=== PATIENT | female | born 1935 | race Caucasian/White ===

== ENCOUNTER 2016-07-19 16:06 | Emergency (ER) | payer OTHER, MEDICAID ==
[~2016-07-19] VITALS: Wt 72.0 kg
[~2016-07-19 16:06] MED LIST: ACET500T84 PO; ASPI-664 PO; DICL75TA2 PO; DILT180C75 PO; HYDR12.58 PO; VALS320T14 PO
[2016-07-19] MEDS ORDERED: IBUPROFEN 200 MG TAB PO ONE (16:30)
--- NOTE | 2016-07-19 16:59 | ERD ---
ER Documentation Chief Complaint Date/Time DATE: 07/19/16 TIME: 16:47 Chief Complaint left hand 3rd and 4th finger injury from car door slammed on it HPI Patient is a 80-year-old female with past medical history of hypertension and arthritis who presents to the emergency department with left hand pain status post crush injury. Patient states approximately 20 minutes ago she got her left hand stuck in the car door. She reports immediate pain and swelling to her fingers. She states her current pain level is a 8 out of 10. She does have a ring on her third digit which is causing significant swelling to her third digit. She is right-hand dominant. Patient denies any injuries to this extremity. Patient denies any fever, chills, chest pain, shortness of breath, nausea, vomiting, diaphoresis, or loss of consciousness. ROS All systems reviewed and are negative except as per history of present illness. Medications Home Meds Active Scripts Ibuprofen* (Motrin*) 400 Mg Tab, 400 MG PO Q6, #20 TAB Prov:EDUARD HERNANDEZ PA-C 07/19/16 Aspirin* (Aspirin* EC) 81 Mg Tablet., 81 MG PO DAILY, #30 TAB 1 Refill Prov:JONATHAN LEONARD MD 12/24/14 Diltiazem Hcl* (Cardizem CD*) 180 Mg Capsr, 180 MG PO DAILY, #30 1 Refill Prov:JONATHAN LEONARD MD 12/24/14 Reported Medications Acetaminophen (Q-Pap Extra Strength) 500 Mg Tablet, 500 MG PO BID Y for PAIN AND OR ELEVATED TEMP, #50 09/29/15 Valsartan (Valsartan) 320 Mg Tablet, 320 MG PO DAILY, #90 09/29/15 Hydrochlorothiazide* (Hydrochlorothiazide*) 12.5 Mg Tablet, 12.5 MG PO DAILY, # 30 09/29/15 Diclofenac Sodium* (Diclofenac Sodium*) 75 Mg Tablet.dr, 75 MG PO BID 01/31/12 Allergies Allergies: Coded Allergies: No Known Allergy (Verified , 01/31/12) PMhx/Soc History of Surgery: Yes Anesthesia Reaction: No Hx Neurological Disorder: No Hx Respiratory Disorders: No Hx Cardiac Disorders: Yes (htn) Hx Psychiatric Problems: No Hx Miscellaneous Medical Probl: No Hx Alcohol Use: No Hx Substance Use: No Hx Tobacco Use: No FmHx Family History: diabetes Physical Exam Vitals Vital Signs Date Time Temp Pulse Resp B/P Pulse Ox O2 Delivery O2 Flow Rate FiO2 07/19/16 16:07 98.7 102 22 179/88 99 Physical Exam GENERAL: Well-developed, well-nourished female. Appears in no acute distress. HEAD: Normocephalic, atraumatic. EYES: Pupils are equally reactive bilaterally. EOMs grossly intact. No conjunctival erythema. ENT: Moist mucous membranes. No uvula deviation. No kissing tonsils. NECK: Supple. No lymphadenopathy or thyromegaly. No meningismus. LUNG: Clear to auscultation bilaterally. No rhonchi, wheezing, rales or coarse breath sounds. HEART: Regular rate and rhythm. No murmurs, rubs or gallops. BACK: No midline tenderness. EXTREMITIES: Equal pulses bilaterally. No peripheral clubbing, cyanosis or edema. No unilateral leg swelling. NEUROLOGIC: Alert and oriented. Moving all four extremities without any difficulty. Normal speech. Steady gait. SKIN: Normal color. Warm and dry. No rashes or lesions. LEFT HAND: No obvious deformity. Ring on 3rd digit. + Significant swelling of 3rd and 4th digits. Superficial laceration to third and fourth digits on the palmar aspect above PIP joint. No tendon or muscle belly exposed. Decreased ROM of digits secondary to pain and secondary. Normal range of motion of wrist, elbow. Patient able to pronate and supinate without any difficulty. Tender to palpation along 3rd and 4th digits. Nontender to palpation of hand, wrist, forearm, elbow. Sensation intact to light touch. Neurovascularly intact. (Able to give thumbs up, make an ok sign, cross digits 2 and 3, thumb to pinky opposition. 2+ RP.) No snuffbox tenderness. Results 24 hrs Current Medications Medications (Trade) Dose Ordered Sig/Samra Route PRN Reason Start Time Stop Time Status Last Admin Dose Admin Ibuprofen (Motrin) 400 mg ONCE ONCE PO 07/19/16 16:30 07/19/16 16:32 DC 07/19/16 17:22 Procedures/MDM ED COURSE: The patient was stable throughout ED course. I kept the patient and/or family informed of laboratory and diagnostic imaging results throughout the ED course. DIAGNOSTIC IMAGING: Read by radiologist. DIAGNOSTIC IMAGING REPORT Patient: ALANNA DAVIES : 1935 Age: 80 Sex: F [id number] DOS: 07/19/16 1630 Ordering MD: EDUARD HERNANDEZ PA-C Location: [facility] Room/Bed: PROCEDURE: XR Left Hand. CLINICAL INDICATION: Trauma due to crushing the hand in a door. Left hand pain. TECHNIQUE: Three views. Frontal lateral and oblique images of the left hand were obtained. COMPARISON: No prior studies are available for comparison. FINDINGS: There is no fracture or dislocation. The soft tissues are normal. Articular surfaces are intact. There is no lytic or blastic lesion. There is no radiopaque foreign body. IMPRESSION: 1. Unremarkable images of the left hand. RPTAT: QQ .Brandon Love MD, Date Time Electronically viewed and signed by .Brandon Love MD, on 07/19/2016 17:25 .R/ CC: EDUARD HERNANDEZ PA-C PROCEDURES: Ring removal: Patient's ring was removed from her third digit of left hand without any difficulty using lubrication and light tugging/ pressure. Patient was neurovascularly intact pre-and post-removal. MEDICATIONS GIVEN: Ibuprofen Patient tolerated medication well with no adverse reactions. Patient reported improvement in pain. MEDICAL DECISION MAKING: This is a 9-year-old female who presents with left hand pain status post injury with car door. Patient had a ring on her third left digit which was removed without any difficulty using lubrication. She was neurovascularly intact pre and post removal. Vital signs were reviewed. Patient was afebrile. XR showed Unremarkable images of the left hand. Given these findings, the patients presentation is most consistent with finger and hand contusion. I have a much lower clinical concern for dislocation, carpal fracture, scaphoid fracture, metacarpal fracture, phalanx fracture, Boxers fracture, mallet finger, gout, osteoarthritis, subungual hematoma, finger avulsion injury, fingertip laceration , osteomyelitis or compartment syndrome. PRESCRIPTIONS: Ibuprofen Apply Neosporin to affected superficial abrasions. DISCHARGE: At this time, patient is stable for discharge and outpatient management. RICE therapy and ROM exercises were advised to avoid stiffness. I have instructed the patient to follow-up with his/her primary care physician in 1-2 days. I have discussed with the patient the possibility of needing to see an solar energy sales specialist for further workup and imaging if the pain persists. I have instructed the patient to promptly return to the ER for any new or worsening symptoms including increased pain, swelling, redness, warmth or fever. The patient and/or family expressed understanding of and agreement with this plan. All questions were answered. Home care instructions were provided. Patients blood pressure was elevated (>120/80) but appears stable without evidence of hypertensive emergency, hypertensive urgency or end-organ failure. I had discussion with the patient about the risks of hypertension. I have advised the patient to follow up with his/her primary care physician for outpatient monitoring and treatment for hypertension in 2-3 days. I have instructed the patient to return to the ER for any new or worsening symptoms including chest pain, shortness of breath, headache, blurred vision, confusion, nausea, vomiting or LOC. Departure Diagnosis: Primary Impression: Finger injury Encounter type: initial encounter Laterality: left Qualified Code: S69.92XA - Finger injury, left, initial encounter Condition: Stable Referrals: ROSA ISELA JAIME MD (PCP) Additional Instructions: Llame al doctor MARIEL y franki stanley HI PARA DENTRO DE 1-2 WALTON.Dgale a la secretaria que nosotros le instruimos hacer esta hi.Avise o llame si johns condicin se empeora antes de la hi. Regresa aqui si peor o no mejor. EDUARD HERNANDEZ PA-C Jul 19, 2016 16:59
--- NOTE | 2016-07-19 17:25 | RADRPT ---
PROCEDURE: XR Left Hand. CLINICAL INDICATION: Trauma due to crushing the hand in a door. Left hand pain. TECHNIQUE: Three views. Frontal lateral and oblique images of the left hand were obtained. COMPARISON: No prior studies are available for comparison. FINDINGS: There is no fracture or dislocation. The soft tissues are normal. Articular surfaces are intact. There is no lytic or blastic lesion. There is no radiopaque foreign body. IMPRESSION: 1. Unremarkable images of the left hand. RPTAT: QQ .Brandon Love MD, MD Date Time Electronically viewed and signed by .Brandon Love MD, on 07/19/2016 17:25 .R/
[2016-07-19] MEDS ORDERED: IBUP400T22 PO (18:06)
== END 2016-07-19 18:23 | disposition home or self-care (01) ==
LOC: FTE 16:06
DX: S69.92XA Unspecified injury of left wrist, hand and finger(s), initial encounter (principal); I10 Essential (primary) hypertension; W23.1XXA Caught, crushed, jammed, or pinched between stationary objects, initial encounter; Y92.9 Unspecified place or not applicable; Z79.82 Long term (current) use of aspirin

== ENCOUNTER 2017-04-02 23:15 | Emergency (ER) | payer OTHER, MEDICAID ==
[~2017-04-02] VITALS: Ht 147.3 cm; Wt 79.5 kg
[~2017-04-02 23:15] MED LIST changes: +IBUP400T22 PO
[2017-04-02 23:28] VITALS: Ht 147.3 cm; Wt 79.5 kg
[2017-04-03] MEDS ORDERED: SODIUM CHLORIDE 0.9% 1L BAG IV* STA (00:07)
[2017-04-03] MEDS ORDERED: CEFTRIAXONE 1 GM/50 ML (PMX) 50 ML IVPB STA (00:07)
[2017-04-03 00:37] LABS: ABNORMAL IP MESSAGE 1; BASOPHILS % 0.2 % (0.0-2.0); HEMOGLOBIN 11.5 g/dl (12.0-16.0); LYMPHOCYTES # 0.5 10^3/ul (0.8-2.9); LYMPHOCYTES % 4.3 % (15.0-51.0); MEAN CORPUSCULAR HEMOGLOBIN 29.9 pg (29.0-33.0); MEAN CORPUSCULAR HGB CONC 34.8 g/dl (32.0-37.0); MEAN CORPUSCULAR VOLUME 85.7 fl (82.0-101.0); MEAN PLATELET VOLUME 9.6 fl (7.4-10.4); MONOCYTE # 1.1 10^3/ul (0.3-0.9); MONOCYTES % 9.3 % (0.0-11.0); NEUTROPHIL # 10.5 10^3/ul (1.6-7.5); NEUTROPHILS % 85.5 % (39.0-77.0); PLATELET COUNT 153 10^3/UL (140-415); RED BLOOD COUNT 3.85 10^6/ul (4.20-5.40); RED CELL DISTRIBUTION WIDTH 12.7 % (11.5-14.5); WHITE BLOOD COUNT 12.3 10^3/ul (4.8-10.8)
[2017-04-03] MEDS ORDERED: ONDANSETRON 4 MG INJ IV STA (00:41)
[2017-04-03] MEDS ORDERED: morphine 4 MG/ML VIAL IV STA (00:41)
--- NOTE | 2017-04-03 00:41 | ERA ---
ER Documentation Chief Complaint Date/Time DATE: 04/03/17 TIME: 00:39 Chief Complaint LOWER MID-AP 03/20 X 2 DAYS, + DYSURIA WITH ACTIVE FEVER, + CHILLS HPI Patient is a 81-year-old female who presents with 2 days of fever associated with 4 days of suprapubic and left lower quadrant pain. She denies diarrhea or vomiting. She reports dysuria. She denies cough or shortness of breath. She denies headache. ROS All systems reviewed and are negative except as per history of present illness. Medications Home Meds Active Scripts Cephalexin* (Keflex*) 500 Mg Capsule, 500 MG PO QID for 10 Days, CAP Prov:JENI MARES MD 04/03/17 Ibuprofen* (Motrin*) 400 Mg Tab, 400 MG PO Q6, #20 TAB Prov:EDUARD HERNANDEZ PA-C 07/19/16 Aspirin* (Aspirin* EC) 81 Mg Tablet.dr, 81 MG PO DAILY, #30 TAB 1 Refill Prov:JONATHAN LEONARD MD 12/24/14 Diltiazem Hcl* (Cardizem CD*) 180 Mg Capsr, 180 MG PO DAILY, #30 1 Refill Prov:JONATHAN LEONARD MD 12/24/14 Reported Medications Acetaminophen (Q-Pap Extra Strength) 500 Mg Tablet, 500 MG PO BID Y for PAIN AND OR ELEVATED TEMP, #50 09/29/15 Valsartan (Valsartan) 320 Mg Tablet, 320 MG PO DAILY, #90 09/29/15 Hydrochlorothiazide* (Hydrochlorothiazide*) 12.5 Mg Tablet, 12.5 MG PO DAILY, # 30 09/29/15 Diclofenac Sodium* (Diclofenac Sodium*) 75 Mg Tablet.dr, 75 MG PO BID 01/31/12 Allergies Allergies: Coded Allergies: No Known Allergy (Verified , 01/31/12) PMhx/Soc Past medical history: Hypertension Past surgical history: Hysterectomy Social history: Denies tobacco or alcohol History of Surgery: Yes (HYSTERECTYOMY ) Anesthesia Reaction: No Hx Neurological Disorder: No Hx Respiratory Disorders: No Hx Cardiac Disorders: Yes (HTN ) Hx Psychiatric Problems: No Hx Miscellaneous Medical Probl: No Hx Alcohol Use: No Hx Substance Use: No Hx Tobacco Use: No Smoking Status: Never smoker FmHx Family History: No coronary disease, No diabetes Physical Exam Vitals Vital Signs Date Time Temp Pulse Resp B/P Pulse Ox O2 Delivery O2 Flow Rate FiO2 04/03/17 05:15 73 22 104/54 98 Room Air 04/03/17 04:20 78 19 103/55 98 Room Air 04/03/17 03:40 98.6 74 25 99/37 95 Room Air 04/03/17 00:00 102.6 142 24 106/67 96 Room Air 04/02/17 23:28 103.0 118 22 141/59 94 Physical Exam Const: Alert, no acute distress Head: Atraumatic Eyes: Normal Conjunctiva, No pallor, no icterus ENT: Normal External Ears, Nose and Mouth. Tacky mucous membranes Neck: Full range of motion. No meningismus. Resp: Clear to auscultation bilaterally, No wheezes, no rales Cardio: Tachycardia, regularrhythm, no murmurs Abd: Soft, Tenderness in the suprapubic area and left lower quadrant, no rebound, no guarding Skin: No petechiae or rashes Back: No midline or flank tenderness Ext: No cyanosis, or edema Neur: Awake and alert, Cranial nerves II through XII intact bilaterally, strength and sensation full in 4 extremities. Psych: Normal Mood and Affect Result Diagram: 04/03/17 0025 04/03/17 0025 Results 24 hrs Laboratory Tests Test 04/03/17 00:05 04/03/17 00:25 04/03/17 02:10 Urine Color YELLOW Urine Clarity CLOUDY Urine pH 5.0 Urine Specific [place] 1.012 Urine Ketones NEGATIVEmg/dL Urine Nitrite NEGATIVEmg/dL Urine Bilirubin NEGATIVEmg/dL Urine Urobilinogen NEGATIVEmg/dL Urine Leukocyte Esterase 3+Lonnie/ul Urine Microscopic RBC 12/HPF Urine Microscopic WBC > 182/HPF Urine Bacteria FEW/HPF Urine Mucus FEW/HPF Urine Hemoglobin 3+mg/dL Urine Glucose NEGATIVEmg/dL Urine Total Protein 1+mg/dl White Blood Count 12.310^3/ul Red Blood Count 3.8510^6/ul Hemoglobin 11.5g/dl Hematocrit 33.0% Mean Corpuscular Volume 85.7fl Mean Corpuscular Hemoglobin 29.9pg Mean Corpuscular Hemoglobin Concent 34.8g/dl Red Cell Distribution Width 12.7% Platelet Count 97221^3/UL Mean Platelet Volume 9.6fl Neutrophils % 85.5% Lymphocytes % 4.3% Monocytes % 9.3% Eosinophils % 0.0% Basophils % 0.2% Nucleated Red Blood Cells % 0.0/100WBC Neutrophils # 10.510^3/ul Lymphocytes # 0.510^3/ul Monocytes # 1.110^3/ul Eosinophils # 0.010^3/ul Basophils # 0.010^3/ul Nucleated Red Blood Cells # 0.010^3/ul Prothrombin Time 15.6Sec Prothrombin Time Ratio 1.2 INR International Normalized Ratio 1.23 Activated Partial Thromboplast Time 34.0Sec Sodium Level 134mmol/L Potassium Level 3.3mmol/L Chloride Level 103mmol/L Carbon Dioxide Level 25mmol/L Anion Gap 9 Blood Urea Nitrogen 17mg/dl Creatinine 0.80mg/dl Glucose Level 187mg/dl Lactic Acid Level 1.4mmol/L 0.9mmol/L Calcium Level 8.3mg/dl Total Bilirubin 0.5mg/dl Direct Bilirubin 0.00mg/dl Indirect Bilirubin 0.5mg/dl Aspartate Amino Transf (AST/SGOT) 39IU/L Alanine Aminotransferase (ALT/SGPT) 42IU/L Alkaline Phosphatase 76IU/L Troponin I < 0.012ng/ml Total Protein 6.6g/dl Albumin 3.5g/dl Globulin 3.10g/dl Albumin/Globulin Ratio 1.12 Current Medications Medications (Trade) Dose Ordered Sig/Samra Route PRN Reason Start Time Stop Time Status Last Admin Dose Admin Sodium Chloride 2470 ml 2,470 ml BOLUS OVER 2 HOURS STAT IV* 04/03/17 00:07 04/03/17 00:09 DC 04/03/17 00:30 Ceftriaxone Sodium (Rocephin) 50 ml @ 100 mls/hr ONCE STAT IVPB 04/03/17 00:07 04/03/17 00:36 DC 04/03/17 01:00 Morphine Sulfate (morphine) 3 mg ONCE STAT IV 04/03/17 00:41 04/03/17 00:43 DC 04/03/17 01:00 Ondansetron HCl 4 mg 4 mg ONCE STAT IV 04/03/17 00:41 04/03/17 00:43 DC 04/03/17 01:00 Sodium Chloride (NS) 1,000 ml @ 1,000 mls/hr Q1H ONCE IV 04/03/17 03:00 04/03/17 03:59 DC 04/03/17 03:30 Procedures/MDM MDM: Patient is a 81-year-old female who presents with fever, dysuria and lower abdominal pain. Her UA is consistent with urinary tract infection. I suspect pyelonephritis given her fever. She has mild leukocytosis but no elevation of lactic acid. There is no daniela hypotension, but the patient had transient low diastolic blood pressures. Patient was treated with IV fluids and broad- spectrum antibiotics. She initially was tachycardic, but her vital signs normalized. She stated that she felt much better. CT scan did not show any surgical abdominal pathology. Blood and urine cultures were sent. The patient will be sent home with a 10 day course of Keflex.She was advised on return precautions and the need to follow-up on urine culture results. Departure Diagnosis: Primary Impression: Pyelonephritis Condition: JENI Galvez MD Apr 03, 2017 00:41
[2017-04-03 00:43] LABS: POSITIVE DIFF @See below
[2017-04-03 00:59] LABS: INR 1.23; PROTIME 15.6 Sec (12.2-14.2); PT RATIO 1.2
[2017-04-03 01:03] LABS: ALANINE AMINOTRANSFERASE 42 IU/L (13-69); ALBUMIN 3.5 g/dl (3.3-4.9); ALBUMIN/GLOBULIN RATIO 1.12; ALKALINE PHOSPHATASE 76 IU/L (42-121); ANION GAP 9 (8-16); ASPARTATE AMINO TRANSFERASE 39 IU/L (15-46); BILIRUBIN,INDIRECT 0.5 mg/dl (0-1.1); BILIRUBIN,TOTAL 0.5 mg/dl (0.2-1.3); BLOOD UREA NITROGEN 17 mg/dl (7-20); CALCIUM 8.3 mg/dl (8.4-10.2); CARBON DIOXIDE 25 mmol/L (21-31); CHLORIDE 103 mmol/L (97-110); GLUCOSE 187 mg/dl (70-220); POTASSIUM 3.3 mmol/L (3.5-5.1); SODIUM 134 mmol/L (135-144); TOTAL PROTEIN 6.6 g/dl (6.1-8.1)
[2017-04-03 01:11] LABS: UR BACTERIA FEW /HPF (NONE SEEN); UR MUCUS FEW /HPF (NONE SEEN); UR NONSQUAMOUS EPITHELIAL CELL 1 /HPF (NONE SEEN); UR RBC 12 /HPF (0-5)
[2017-04-03 01:12] LABS: ADD UMIC YES; UR ASCORBIC ACID NEGATIVE (NEGATIVE); UR BILIRUBIN (Dip) NEGATIVE (NEGATIVE); UR BLOOD (Dip) 3+ mg/dL (NEGATIVE); UR CLARITY CLOUDY (CLEAR); UR COLOR YELLOW (YELLOW); UR GLUCOSE (Dip) NEGATIVE (NEGATIVE); UR KETONES (Dip) NEGATIVE (NEGATIVE); UR LEUKOCYTE ESTERASE (Dip) 3+ Leu/ul (NEGATIVE); UR NITRITE (Dip) NEGATIVE (NEGATIVE); UR SPECIFIC GRAVITY (Dip) 1.012 (1.003-1.030); UR TOTAL PROTEIN (Dip) 1+ mg/dl (NEGATIVE); UR UROBILINOGEN (Dip) NEGATIVE (NEGATIVE)
[2017-04-03 01:18] LABS: TROPONIN-I < 0.012 ng/ml (0.00-0.12)
--- NOTE | 2017-04-03 01:21 | RADRPT ---
PROCEDURE: XR Chest. CLINICAL INDICATION: Chest pain. TECHNIQUE: Single frontal chest x-ray. COMPARISON: 09/29/2059 FINDINGS: The cardiomediastinal silhouette is unremarkable. There is no definite CHF.. There is hypoventilati on with bibasilar atelectasis.. There is no pleural effusion. There is no pneumothorax. There are degenerative changes of the thoracic spine.. IMPRESSION: Hypoventilation with bibasilar atelectasis. RPTAT: HMVK .Wili Magana MD, Date Time Electronically viewed and signed by .Wili Magana MD, on 04/03/2017 01:21 .K/
--- NOTE | 2017-04-03 01:41 | RADRPT ---
PROCEDURE: CT Abdomen and pelvis without contrast. CLINICAL INDICATION: Abdominal pain. TECHNIQUE: CT scan of the abdomen and pelvis was performed on a multi-detector high-resolution CT scanner. Contiguous axial images were obtained from the lung bases to the ischial tuberosities wit hout intravenous contrast. Coronal and sagittal reformatted images were also obtained. Images were reviewed on the PACS workstation. Study is limited by patient motion. One or more of the following dose reduction techniques were used: - Automated exposure control. - Adjustment of the mA and/or kV according to patient size. - Use of iterative reconstruction technique. Exam CTD/vol = 15.75 mGy. Total exam DLP = 874.28 mGy-cm. COMPARISON: None. FINDINGS: Evaluation of the lung bases demonstrates minimal bibasilar atelectasis. Abdomen: The liver is normal in size. There is no focal mass or dilatation of the biliary tree. T he gallbladder is not distended. The spleen, pancreas and bilateral adrenal glands are within dinora l limits. Bilateral kidneys are normal in size with no contour deforming mass identified. There is no radiopaque renal or ureteral calculus identified. There is no hydronephrosis or hydroureter. T here is no retroperitoneal adenopathy. The abdominal aorta is of normal caliber with scattered athe rosclerotic calcifications. There is moderate retained stool within the right colon. There is no bowel obstruction or free air. A normal appendix is identified. There are scattered sigmoid diverticuli without evidence of dive rticulitis. There is no ascites. Pelvis: The bladder is unremarkable. The uterus and adnexa are within normal limits. There is no significant pelvic adenopathy or free fluid. There are calcified injection granulomas over bilateral buttocks. Evaluation of the osseous structures demonstrates no suspicious lytic or blastic lesion. There are d egenerative changes of the spine. IMPRESSION: No acute abnormality identified within the abdomen and pelvis. Study is limited by patient motion. Moderate retained stool within the right colon. Scattered sigmoid diverticuli without evidence of diverticulitis. Vascular calcifications reflective of atherosclerosis. Degenerative changes of the spine. .Adis Jeffrey MD, Date Time Electronically viewed and signed by .Adis Jeffrey MD, on 04/03/2017 01:41 .T/
[2017-04-03] MEDS ORDERED: SOD CHLORIDE 0.9% 1,000 ML IV ONE (03:00)
[2017-04-03 03:40] VITALS: TEMP 98.6
[2017-04-03 05:15] VITALS: BP 104/54; PULSE 73; RESP 22
[2017-04-03] MEDS ORDERED: CEPH-443 PO (05:21)
== END 2017-04-03 05:35 | disposition home or self-care (01) ==
LOC: E/R 23:15
DX: N12 Tubulo-interstitial nephritis, not specified as acute or chronic (principal); I10 Essential (primary) hypertension; Z79.82 Long term (current) use of aspirin
CPT/HCPCS: 36415; 71010; 74176; 80053; 81001; 83605; 84484; 85025; 85610; 85730; 87040; 87086; 93005; 96374; 96375; 99285; J0696; J2270; J2405; J7030

== ENCOUNTER 2017-06-12 15:58 | Emergency (ER) | payer OTHER, MEDICAID ==
[~2017-06-12] VITALS: Ht 149.9 cm; Wt 80.0 kg
[~2017-06-12 15:58] MED LIST changes: +CEPH-443 PO
[2017-06-12 16:00] VITALS: Ht 149.9 cm; Wt 80.0 kg
[2017-06-12 18:06] VITALS: BP 153/43; PULSE 68; RESP 18
[2017-06-12] MEDS ORDERED: ASPIRIN 325 MG TAB PO STA (18:11)
[2017-06-12] MEDS ORDERED: morphine 2 MG INJ IV STA (18:11)
[2017-06-12] MEDS ORDERED: ONDANSETRON 4 MG INJ IV STA (18:11)
[2017-06-12 18:44] LABS: BASOPHILS % 0.4 % (0.0-2.0); EOSINOPHILS # 0.2 10^3/ul (0.0-0.5); EOSINOPHILS % 3.1 % (0.0-7.0); HEMATOCRIT 39.1 % (37.0-47.0); HEMOGLOBIN 13.4 g/dl (12.0-16.0); LYMPHOCYTES # 1.9 10^3/ul (0.8-2.9); LYMPHOCYTES % 24.7 % (15.0-51.0); MEAN CORPUSCULAR HEMOGLOBIN 29.3 pg (29.0-33.0); MEAN CORPUSCULAR HGB CONC 34.3 g/dl (32.0-37.0); MEAN CORPUSCULAR VOLUME 85.6 fl (82.0-101.0); MEAN PLATELET VOLUME 10.3 fl (7.4-10.4); MONOCYTE # 0.8 10^3/ul (0.3-0.9); MONOCYTES % 10.1 % (0.0-11.0); NEUTROPHIL # 4.8 10^3/ul (1.6-7.5); NEUTROPHILS % 61.4 % (39.0-77.0); PLATELET COUNT 221 10^3/UL (140-415); RED BLOOD COUNT 4.57 10^6/ul (4.20-5.40); WHITE BLOOD COUNT 7.7 10^3/ul (4.8-10.8)
--- NOTE | 2017-06-12 18:45 | RADRPT ---
PROCEDURE: CT Brain without contrast. CLINICAL INDICATION: Headaches TECHNIQUE: A CT of the brain was performed on a [employer] CT scanner utilizing axial imaging f rom the skull base through the vertex without IV contrast. Multiplanar reformatted images were made . Images were reviewed on a PACS workstation. The CTDIvol is 45.01 mGy and the DLP is 720.23 mGycm . DICOM images are available. One of the following 3 dose reduction techniques were used during this CT examination: 1) Automated exposure control 2) Adjustment of the mA +/- kV according to patient size or 3) Use of iterative reconstruction technique COMPARISON: None available FINDINGS: There is no intracranial hemorrhage, mass effect, or midline shift. No extra-axial fluid collection is seen. The ventricles and sulci are age appropriate. Mild diffuse volume loss is present. Subtle decreased attenuation is present in the bilateral centrum semiovale and periventricular white matter compatible with mild chronic microvascular ischemic disease. The visualized scalp and calvarium are normal. The bilateral orbits are normal. The bilateral parana laurie sinuses, mastoid air cells and middle ear cavities are clear. IMPRESSION: 1. No evidence of acute intracranial hemorrhage, infarcts, or acute intracranial pathology. 2. Mild chronic microvascular ischemic disease and diffuse volume loss. RPTAT: HDC .Ashly Davis MD, Date Time Electronically viewed and signed by .Ashly Davis MD, MD on 06/12/2017 18:44 .C/
[2017-06-12 19:03] LABS: ANION GAP 14 (8-16); BLOOD UREA NITROGEN 19 mg/dl (7-20); CALCIUM 9.1 mg/dl (8.4-10.2); CARBON DIOXIDE 27 mmol/L (21-31); CHLORIDE 106 mmol/L (97-110); CREATININE 0.73 mg/dl (0.44-1.00); GLUCOSE 100 mg/dl (70-220); POTASSIUM 4.1 mmol/L (3.5-5.1); SODIUM 143 mmol/L (135-144)
[2017-06-12 19:21] LABS: TROPONIN-I < 0.012 ng/ml (0.00-0.12)
[2017-06-12] MEDS ORDERED: IBUP400T22 PO (20:03)
[2017-06-12] MEDS ORDERED: TRAM50TA2 PO (20:03)
--- NOTE | 2017-06-12 20:10 | ERD ---
ER Documentation Chief Complaint Chief Complaint chest pain and shortness of breath x 20 mins HPI This is a 81-year-old female who complains of left-sided chest pain this morning. She describes the pain is sharp located in the left chest and worse when she takes a deep breath and worse with turning or moving her left shoulder. She does not have any pushing pulling or lifting injury. Notes no sweating no dyspnea no palpitations no nausea. Pain is nonradiating no pain in the jaw or back She also complains of a dull occipital headache onset this afternoon pain is dull and mild ROS All systems reviewed and are negative except as per history of present illness. Medications Home Meds Active Scripts Tramadol HCl (Tramadol HCl) 50 Mg Tablet, 50 MG PO Q6, #20 TAB Prov:LISA LIPSCOMB DO 06/12/17 Ibuprofen* (Motrin*) 400 Mg Tab, 400 MG PO Q6, #30 TAB Prov:LISA LIPSCOMB DO 06/12/17 Reported Medications Valsartan (Valsartan) 320 Mg Tablet, 320 MG PO DAILY, #90 09/29/15 Discontinued Reported Medications Acetaminophen (Q-Pap Extra Strength) 500 Mg Tablet, 500 MG PO BID Y for PAIN AND OR ELEVATED TEMP, #50 09/29/15 Hydrochlorothiazide* (Hydrochlorothiazide*) 12.5 Mg Tablet, 12.5 MG PO DAILY, # 30 09/29/15 Diclofenac Sodium* (Diclofenac Sodium*) 75 Mg Tablet.dr, 75 MG PO BID 01/31/12 Discontinued Scripts Cephalexin* (Keflex*) 500 Mg Capsule, 500 MG PO QID for 10 Days, CAP Prov:JENI MARES MD 04/03/17 Ibuprofen* (Motrin*) 400 Mg Tab, 400 MG PO Q6, #20 TAB Prov:EDUARD HERNANDEZ PA-C 07/19/16 Aspirin* (Aspirin* EC) 81 Mg Tablet.dr, 81 MG PO DAILY, #30 TAB 1 Refill Prov:JONATHAN LEONARD MD 12/24/14 Diltiazem Hcl* (Cardizem CD*) 180 Mg Capsr, 180 MG PO DAILY, #30 1 Refill Prov:JONATHAN LEONARD MD 12/24/14 Allergies Allergies: Coded Allergies: No Known Allergy (Verified , 06/12/17) PMhx/Soc History of Surgery: Yes (HYSTERECTYOMY ) Anesthesia Reaction: No Hx Neurological Disorder: No Hx Respiratory Disorders: No Hx Cardiac Disorders: Yes (HTN ) Hx Psychiatric Problems: No Hx Miscellaneous Medical Probl: No Hx Alcohol Use: No Hx Substance Use: No Hx Tobacco Use: No Smoking Status: Never smoker FmHx Family History: No coronary disease Physical Exam Vitals Vital Signs Date Time Temp Pulse Resp B/P Pulse Ox O2 Delivery O2 Flow Rate FiO2 06/12/17 19:57 Nasal Cannula 2 06/12/17 18:06 68 18 153/43 100 Nasal Cannula 2.0 06/12/17 16:00 98.0 86 18 203/91 100 Physical Exam Const: Well-developed, well-nourished Head: Atraumatic, normocephalic Eyes: Normal Conjunctiva, PERRLA, EOMI, normal sclera, no nystagmus ENT: Normal External Ears, Nose and Mouth, moist mucus membranes. Neck: Full range of motion. No meningismus, no lymphadenopathy. Resp: Clear to auscultation bilaterally, no wheezing, rhonchi, rales Cardio: Regular rate and rhythm, no murmurs, S1 S2 present, left anterior upper chest wall is reproducible tenderness that is moderate to severe there is also left mid and upper rib cage tenderness that is reproducible. Twisting of the trunk reproduces the pain, moving the left arm and shoulder reproduces the pain Abd: Soft, non tender x 4, non distended. Normal bowel sounds, no guarding or rebound, no pulsitile abdominal masses or bruits Skin: No petechiae or rashes, no ecchymosis , no maculopapular rash Back: No midline or flank tenderness Ext: No cyanosis, or edema, FROM x 4, normal inspection, neurovascularly intact x 4 Neur: Awake and alert, STR 5/5 x 4, sensation intact x 4, no focal findings, cerebellum intact Psych: Normal Mood and Affect Result Diagram: 06/12/17180906/12/171809 Results 24 hrs Laboratory Tests Test 06/12/17 18:10 White Blood Count 7.710^3/ul Red Blood Count 4.5710^6/ul Hemoglobin 13.4g/dl Hematocrit 39.1% Mean Corpuscular Volume 85.6fl Mean Corpuscular Hemoglobin 29.3pg Mean Corpuscular Hemoglobin Concent 34.3g/dl Red Cell Distribution Width 13.0% Platelet Count 44978^3/UL Mean Platelet Volume 10.3fl Neutrophils % 61.4% Lymphocytes % 24.7% Monocytes % 10.1% Eosinophils % 3.1% Basophils % 0.4% Nucleated Red Blood Cells % 0.0/100WBC Neutrophils # 4.810^3/ul Lymphocytes # 1.910^3/ul Monocytes # 0.810^3/ul Eosinophils # 0.210^3/ul Basophils # 0.010^3/ul Nucleated Red Blood Cells # 0.010^3/ul Sodium Level 143mmol/L Potassium Level 4.1mmol/L Chloride Level 106mmol/L Carbon Dioxide Level 27mmol/L Anion Gap 14 Blood Urea Nitrogen 19mg/dl Creatinine 0.73mg/dl Glucose Level 100mg/dl Calcium Level 9.1mg/dl Troponin I < 0.012ng/ml Current Medications Medications (Trade) Dose Ordered Sig/Samra Route PRN Reason Start Time Stop Time Status Last Admin Dose Admin Aspirin (Aspirin) 325 mg ONCE STAT PO 06/12/17 18:11 06/12/17 18:13 DC 06/12/17 19:01 Morphine Sulfate (morphine) 2 mg ONCE STAT IV 06/12/17 18:11 06/12/17 18:13 DC Ondansetron HCl (Zofran Inj) 4 mg ONCE STAT IV 06/12/17 18:11 06/12/17 18:13 DC Procedures/MDM EKG: Rate/Rhythm: Normal Sinus Rhythm,NL intervals QRS, ST, QT: NORMAL TX, QRS, QT] Impression: NORMAL EKG . . PROCEDURE: CT Brain without contrast. CLINICAL INDICATION: Headaches TECHNIQUE: A CT of the brain was performed on a [email or web address] CT scanner utilizing axial imaging from the skull base through the vertex without IV contrast. Multiplanar reformatted images were made. Images were reviewed on a PACS workstation. The CTDIvol is 45.01 mGy and the DLP is 720.23 mGycm. DICOM images are available. One of the following 3 dose reduction techniques were used during this CT examination: 1) Automated exposure control 2) Adjustment of the mA +/- kV according to patient size or 3) Use of iterative reconstruction technique COMPARISON: None available FINDINGS: There is no intracranial hemorrhage, mass effect, or midline shift. No extra- axial fluid collection is seen. The ventricles and sulci are age appropriate. Mild diffuse volume loss is present. Subtle decreased attenuation is present in the bilateral centrum semiovale and periventricular white matter compatible with mild chronic microvascular ischemic disease. The visualized scalp and calvarium are normal. The bilateral orbits are normal. The bilateral paranasal sinuses, mastoid air cells and middle ear cavities are clear. IMPRESSION: 1. No evidence of acute intracranial hemorrhage, infarcts, or acute intracranial pathology. 2. Mild chronic microvascular ischemic disease and diffuse volume loss. RPTAT: HDC .Ashly Davis MD, MD Date Time Electronically viewed and signed by .Ashly Davis MD, MD on 06/12/2017 18: 44 .C/ CC: LISA LIPSCOMB DO Patient's chest pain to me is clearly musculoskeletal in nature there is reproducible tenderness to palpation of the anterior and posterior chest wall and with twisting of the trunk movement of the arm. Cardiac workup is negative. Discharged home with Motrin and tramadol. CT scan of brain is negative no evidence of any intracranial pathology Departure Diagnosis: Primary Impression: Chest wall pain Condition: Stable Patient Instructions: Chest Wall Strain LISA LIPSCOMB DO Jun 12, 2017 20:10
--- NOTE | 2017-06-13 06:19 | RADRPT ---
PROCEDURE: XR Chest. CLINICAL INDICATION: Chest pain TECHNIQUE: An AP view of the chest was obtained. COMPARISON: DR CHEST 04/03/2017; [facility] CHEST 09/29/2015; [facility] CHEST 12/23/2014 FINDINGS: There is prominence of the interstitial markings. No pleural effusion or pneumothorax is seen. Th e cardiomediastinal silhouette is mildly enlarged . Calcifications are seen within the aortic arch. The osseous structures demonstrate senescent changes. IMPRESSION: 1. Mild prominence of the interstitial markings, may reflect mild underlying interstitial edema or chronic lung changes. Lung aeration and expansion is mildly improved when compared to the prior exam ination. 2. Mild cardiomegaly and aortic atherosclerosis. RPTAT: HH .Gali Kruse MD, MD Date Time Electronically viewed and signed by .Gali Kruse MD, on 06/13/2017 06:18 .G/
== END 2017-06-12 23:37 | disposition home or self-care (01) ==
LOC: E/R 15:58
DX: R07.89 Other chest pain (principal); I10 Essential (primary) hypertension; R51 Headache; Z79.82 Long term (current) use of aspirin
CPT/HCPCS: 36415; 70450; 71010; 80048; 84484; 85025; 93005

== ENCOUNTER 2017-07-23 09:15 | Emergency (ER) | END 2017-07-23 17:36 | disposition home or self-care (01) ==

== ENCOUNTER 2017-11-04 13:11 | Emergency (ER) | END 2017-11-04 14:55 | disposition home or self-care (01) ==

== ENCOUNTER 2018-08-27 17:49 | Emergency (ER) | payer MEDICARE, MEDICAID ==
[~2018-08-27] VITALS: Ht 152.4 cm; Wt 71.8 kg
[~2018-08-27 17:49] MED LIST changes: +ACET500C5 PO; -ACET500T84 PO; -ASPI-664 PO; +D-ME473S2 PO; -DICL75TA2 PO; -DILT180C75 PO; -HYDR12.58 PO; +HYDR25TA6 PO; -IBUP400T22 PO; +IBUP800T48 PO; +SERT25TA83 PO; -VALS320T14 PO; +VALS320T15 PO
[2018-08-27 18:01] VITALS: Ht 152.4 cm; Wt 71.8 kg
[2018-08-27] MEDS ORDERED: KETOROLAC 30 MG INJ IM STA (20:43)
[2018-08-27] MEDS ORDERED: ACETAMINOPHEN 500 MG TAB PO STA (20:43)
[2018-08-27] MEDS ORDERED: NAPR-985 PO (20:47)
[2018-08-27] MEDS ORDERED: GABA300C16 PO (20:47)
[2018-08-27] MEDS ORDERED: DEXAMETHASONE 10 MG/ML 1 ML INJ IM ONE (21:00)
[2018-08-27 21:12] VITALS: BP 162/72; PULSE 89; RESP 20
--- NOTE | 2018-08-28 00:55 | ERD ---
ER Documentation Chief Complaint Chief Complaint pt bib son with c/o right arm pain x 2 wks, "feels like a shocking pain" HPI 82 year-old [female] [male] coming in today with Chief Complaint: Arm pain History of Present Illness: Patient with complaint of right arm pain that has been present for 2 weeks, unchanged. Patient reports no relief with Aleve or icy/hot patches. Patient denies any other complaints. Denies trauma to affected extremity. Review of systems: All systems were reviewed and are negative except for what is indicated in the history of present illness. Past Medical History: positive for hypertension Social History: [Patient denies tobacco, alcohol, elicit drug use] Medications: [Reviewed as documented Nursing Notes] Allergies: [NKDA] [Reviewed as documented in Nursing Notes] Social Concerns: Denies ROS All systems reviewed and are negative except as per history of present illness. Medications Home Meds Active Scripts Gabapentin* (Gabapentin*) 300 Mg Capsule, 300 MG PO BID for PAIN, #60 CAP TAKE 1 PILL AT NIGHT FOR 3 DAYS, THEN START TAKING 1 PILL IN THE MORNING AND AT NIGHT Prov:DIANE ARCE NP 08/27/18 Naproxen* (Naprosyn*) 500 Mg Tablet, 500 MG PO BID PRN for PAIN AND/OR INFLAMMATION, #30 TAB Prov:DIANE ARCE NP 08/27/18 Dextromethorphan Hb-Promethazine Hcl* (Promethazine DM* Syrup) 473 Ml Syrup, 5 ML PO Q6 PRN for COUGH for 5 Days, ML Prov:CHIKIS QUEEN MD 11/04/17 Acetaminophen* (Tylophen*) 500 Mg Capsule, 1 CAP PO Q6H PRN for PAIN AND OR ELEVATED TEMP, #15 CAP Prov:CHIKIS QUEEN MD 11/04/17 Ibuprofen* (Motrin*) 800 Mg Tab, 800 MG PO Q6H PRN for PAIN AND OR ELEVATED TEMP, #20 TAB Prov:KAREEN SOTO MD 07/23/17 Cephalexin* (Keflex*) 500 Mg Capsule, 500 MG PO QID for 10 Days, CAP Prov:KAREEN SOTO MD 07/23/17 Ibuprofen* (Motrin*) 800 Mg Tab, 800 MG PO Q6H PRN for PAIN AND OR ELEVATED TEMP, #20 TAB Prov:KAREEN SOTO MD 07/23/17 Cephalexin* (Keflex*) 500 Mg Capsule, 500 MG PO QID for 10 Days, CAP Prov:KAREEN SOTO MD 07/23/17 Reported Medications Sertraline Hcl* (Sertraline Hcl*) 25 Mg Tablet, 25 MG PO NEEDED, #30 TAB 07/23/17 Hydrochlorothiazide* (Hydrochlorothiazide*) 25 Mg Tab, 25 MG PO DAILY, #30 TAB 07/23/17 Valsartan (Valsartan) 320 Mg Tablet, 320 MG PO DAILY, #90 09/29/15 Allergies Allergies: Coded Allergies: No Known Allergy (Verified , 07/23/17) PMhx/Soc History of Surgery: Yes (HYSTERECTYOMY ) Anesthesia Reaction: No Hx Neurological Disorder: No Hx Respiratory Disorders: No Hx Cardiac Disorders: Yes (HTN ) Hx Psychiatric Problems: No Hx Miscellaneous Medical Probl: No Hx Alcohol Use: No Hx Substance Use: No Hx Tobacco Use: No Smoking Status: Never smoker FmHx Family History: No diabetes, No coronary disease Physical Exam Vitals Vital Signs Date Temp Pulse Resp B/P (MAP) Pulse Ox O2 O2 Flow FiO2 Time Delivery Rate 08/27/18 97.7 89 20 162/72 97 Room Air 21:12 (102) 08/27/18 98.2 102 16 159/72 100 18:01 (101) Physical Exam Const: No acute distress Head: Atraumatic Eyes: Normal Conjunctiva ENT: Normal External Ears, Nose and Mouth. Neck: Full range of motion. No meningismus. Resp: Clear to auscultation bilaterally Cardio: Regular rate and rhythm, no murmurs Abd: Soft, non tender, non distended. Normal bowel sounds Skin: No petechiae or rashes Back: No midline or flank tenderness Ext: No cyanosis, or edema; tenderness to right upper upon palpation Neur: Awake and alert Psych: Normal Mood and Affect Results 24 hrs Current Medications Medications Dose Sig/Samra Start Time Status Last (Trade) Ordered Route PRN Stop Time Admin Dose Reason Admin 8 mg ONCE ONCE 08/27/18 DC 08/27/18 Dexamethasone IM 21:00 20:50 (Decadron) 08/27/18 21:01 Ketorolac 30 mg ONCE STAT 08/27/18 DC 08/27/18 Tromethamine IM 20:43 20:50 (Toradol) 08/27/18 20:44 1,000 mg ONCE STAT 08/27/18 DC 08/27/18 Acetaminophen PO 20:43 20:49 (Tylenol 08/27/18 20:44 Tab) Procedures/MDM Patient with complaint of arm pain ED course includes a thorough examination and history. Low suspicion for orthopedic, neurovascular, cardiac emergency. Otherwise healthy patient presenting with constellation of symptoms likely representing uncomplicated musculoskeletal pain as characterized by history, physical exam findings. ED course includes anti-inflammatory Toradol shot, dexamethasone steroid, Gareth wrap, sling to affected extremity. No respiratory distress, otherwise relatively well appearing and nontoxic. Patient educated on diagnoses, prescriptions, follow-up care, return precautions. Strict return precautions given for worsening condition; questions answered discharge. Disposition for discharge with followup in 3 days with PCP/clinic for further workup and possible referral for physical therapy. Departure Diagnosis: Primary Impression: Pain in right upper arm Condition: Stable [facility]: [facility] se blanchard hecho un examen mdico de control que le indica que no est en stanley condicin que requiera tratamiento urgente en el Departamento de Emergencia. Un estudio ms profundo y el tratamiento de johns condicin pueden esperar sin ningn riesgo hasta que usted sea atendida/o en el consultorio de johns mdico o stanley clnica. Es responsabilidad suya arreglar stanley mayelin para el seguimiento del raquel. MANEJO DE CONDICIONES NO URGENTES EN EL FUTURO 1) Si usted tiene un mdico de atencin primaria: Usted debera llamar a johns mdico de atencin primaria antes de venir al departamento de emergencia. Despus de las horas de consultorio, johns doctor o johns asociado/a est disponible por telfono. El mdico o enfermero de luis en el servicio telefnico puede asesorarle por amira medio para atender el problema, o raquel contrario se puede programar stanley mayelin. 2) Si usted no tiene un mdico de atencin primaria: Llame al mdico o clnica de referencia que aparece abajo alexandro las horas de consultorio para hacer stanley mayelin para que le vean. CLINICAS: [facility] [phone] [facility] [phone] [facility] [phone] [facility] [phone] [facility] [phone] [facility] [phone] [address] [facility]. [facility] YOU HAVE RECEIVED A MEDICAL SCREENING EXAM AND THE RESULTS INDICATE THAT YOU DO NOT HAVE A CONDITION THAT REQUIRES URGENT TREATMENT IN THE EMERGENCY DEPARTMENT. FURTHER EVALUATION AND TREATMENT OF YOUR CONDITION CAN WAIT UNTIL YOU ARE SEEN IN YOUR DOCTORS OFFICE WITHIN THE NEXT 1-2 DAYS. IT IS YOUR RESPONSIBILITY TO MAKE AN APPOINTMENT FOR FOLOW-UP CARE. IF YOU HAVE A PRIMARY DOCTOR --you should call your primary doctor and schedule and appointment IF YOU DO NOT HAVE A PRIMARY DOCTOR YOU CAN CALL OUR PHYSICIAN REFERRAL HOTLINE AT . IF YOU CAN NOT AFFORD TO SEE A PHYSICIAN YOU CAN CHOSE FROM THE FOLLOWING FORMERLY [facility] INSTITUTIONS: [facility] [id number] [place] [id number] [facility] [address] [place], [place] [id number] [place] [address] [address] [place] [address] Additional Instructions: Call your primary care doctor TOMORROW for an appointment during the next 1 WEEK.Tell the pathology secretary that you were referred from this facility.See the doctor sooner or return here if your condition worsens before your appointment time. Report to primary care to see how steroid, anti-inflammatory, Gabapentin, sling, GARETH wrap are working for patient. DIANE ARCE NP Aug 28, 2018 00:55
== END 2018-08-27 21:12 | disposition home or self-care (01) ==
LOC: FTE 17:49
DX: M79.621 Pain in right upper arm (principal); I10 Essential (primary) hypertension
CPT/HCPCS: 96372; 99284; J1100; J1885